=== PATIENT | male | born 1995 | race Caucasian/White ===

== ENCOUNTER 2023-11-25 14:15 | Outpatient (RCR) | payer OTHER, SELFPAY | END 2023-11-25 23:59 | disposition home or self-care (01) | LOC: RPT 14:15 | PROVIDERS: ATTENDING PHYSICIAN Internal Medicine; PRIMARYCARE PHYSICIAN Family Medicine | DX: K59.4 Anal spasm (principal); M62.89 Other specified disorders of muscle | CPT/HCPCS: 97014; 97112; 97140; 97530 ==

== ENCOUNTER 2023-12-30 13:07 | Outpatient (RCR) | payer OTHER, SELFPAY | END 2023-12-30 23:59 | disposition home or self-care (01) | LOC: RPT 13:07 | PROVIDERS: ATTENDING PHYSICIAN Internal Medicine; PRIMARYCARE PHYSICIAN Family Medicine | DX: K59.4 Anal spasm (principal); M62.89 Other specified disorders of muscle; Z73.6 Limitation of activities due to disability | CPT/HCPCS: 97112; 97140; 97530 ==

== ENCOUNTER → 2024-02-10 16:51 | Outpatient (REF) | payer OTHER, SELFPAY | LOC: RAD 16:51 | PROVIDERS: ATTENDING PHYSICIAN Physician Assistant Medical | DX: M25.521 Pain in right elbow (principal); M25.561 Pain in right knee | CPT/HCPCS: 73080; 73564 ==

== ENCOUNTER → 2024-03-29 13:07 | Outpatient (REF) | payer OTHER, SELFPAY | LOC: MRI 3T 13:07 | PROVIDERS: ATTENDING PHYSICIAN Orthopaedic Surgery; FAMILY PHYSICIAN Physician Assistant Medical | DX: M23.41 Loose body in knee, right knee (principal) | CPT/HCPCS: 73721 ==

== ENCOUNTER → 2025-10-02 12:26 | Outpatient (REF) | payer OTHER, SELFPAY | LOC: RAD 12:26 | PROVIDERS: ATTENDING PHYSICIAN Family Medicine | DX: K21.9 Gastro-esophageal reflux disease without esophagitis (principal); K59.09 Other constipation; R10.84 Generalized abdominal pain; R11.0 Nausea; R68.81 Early satiety; R14.0 Abdominal distension (gaseous) | CPT/HCPCS: 74177; Q9967 ==